=== PATIENT | male | born 1995 | race Caucasian/White ===

== ENCOUNTER 2018-08-06 08:22 | Emergency (ER) | payer BC, OTHER ==
[2018-08-06 08:28] VITALS: BP 137/86; PULSE 79; TEMP 98.1; BMI 27.8
[2018-08-06] MEDS ORDERED: KETOROLAC TROMETHAMINE 60 MG/2 ML VIAL IM ONE (09:17)
[2018-08-06] MEDS ORDERED: hydrOXYzine PAMOATE 50 MG CAPSULE (FP) PO ONE (09:17)
--- NOTE | 2018-08-06 09:17 | PDOC ---
History of Present Illness - General Chief Complaint: Back Pain Stated Complaint: LOWER BACK PAIN Time Seen by Provider: 08/06/18 08:55 - History of Present Illness Initial Comments: 08/06/18 10:11 Chief complaint: Low back pain History of present illness: Patient doing squats with heavy weights yesterday in the gym, noted sudden low back pain, which worsened this morning. Having difficulty moving. Pain and stiffness low back without radiation to the legs. Periodic low back pain and stiffness in the past, usually the result of weight lifting, resolving spontaneously. No history of disc disease or radiculopathy. Review of systems: No fever/chills, no radiation of the pain to the legs, no numbness or tingling in the lower extremities. No saddle anesthesia, bowel or bladder incontinence or retention. Remainder systems reviewed and negative Past medical history: Healthy male, no history of significant medical or surgical problems past or present. No medications. Social history: Denies tobacco, drugs. Occasional social alcohol, none recently. Fully ambulatory without disability Family history: Negative for early coronary artery disease, bone or joint disease, metabolic diseases including diabetes, cancer Physical exam: Alert and oriented, well-developed well-nourished, mild to moderate distress due to back pain and stiffness. However, cooperative Afebrile, vital signs normal LS spine: There is loss of the normal lumbar lordosis with paravertebral spasm bilaterally. There is no point tenderness or inflammation over the vertebral bodies. Straight leg raising is negative. No distal sensory or motor deficits in the lower extremities. No saddle anesthesia and good sphincter tone. Abdomen soft nontender without mass or organomegaly. No CVAT. Bowel sounds normal. Nondistended. Neurological C2 to 12 intact. Strength full and symmetric. No focal sensory or motor deficits. Gait is stable, there is no limb, but there is pain with weightbearing and walking localized to the low back. Impression: Low back strain. No evidence of radiculopathy or disc herniation Plan: Symptomatic treatment, rest and medication, referral to orthopedist. Past History - Past Medical History Allergies/Adverse Reactions: Allergies Allergy/AdvReac Type Severity Reaction Status Date / Time No Known Allergies Allergy Verified 08/06/18 08:22 Home Medications: Ambulatory Orders Cyclobenzaprine HCl [Flexeril -] 10 mg PO TID #15 tablet 08/06/18 Diclofenac Sodium 75 mg PO BID #20 tablet.dr 08/06/18 COPD: No - Suicide/Smoking/Psychosocial Hx Smoking History: Never smoked Have you smoked in the past 12 months: No Information on smoking cessation initiated: No Hx Alcohol Use: No Drug/Substance Use Hx: No Substance Use Type: None *Physical Exam - Vital Signs Last Vital Signs Temp Pulse Resp BP Pulse Ox 98.1 F 79 20 137/86 100 08/06/18 08:22 08/06/18 08:22 08/06/18 08:22 08/06/18 08:22 08/06/18 08:22 Moderate Sedation - Procedure Monitoring Vital Signs: Procedure Monitoring Vital Signs Temperature 98.1 F 08/06/18 08:22 Pulse Rate 79 08/06/18 08:22 Respiratory Rate 20 08/06/18 08:22 Blood Pressure 137/86 08/06/18 08:22 O2 Sat by Pulse Oximetry (%) 100 08/06/18 08:22 Medical Decision Making - Medical Decision Making 08/06/18 10:18 Much improved with treatment. More mobile, pain significantly improved, ambulatory without difficulty, and more comfortable at rest. Symptomatic treatment and medication until resolution, otherwise follow-up with specialist managers 1 week. Fully ambulatory and in no significant pain or other distress upon discharge with mother to follow-up as directed *DC/Admit/Observation/Transfer Diagnosis at time of Disposition: Low back strain Qualifiers: Encounter type: initial encounter Qualified Code(s): S39.012A - Strain of muscle, fascia and tendon of lower back, initial encounter - Discharge Dispostion Disposition: HOME Condition at time of disposition: Improved Decision to Admit order: No - Prescriptions Prescriptions: Cyclobenzaprine HCl [Flexeril -] 10 mg PO TID #15 tablet Diclofenac Sodium 75 mg PO BID #20 tablet. - Referrals Referrals: Glen Barnett MD [Staff Physician] - - Patient Instructions Printed Discharge Instructions: DI for Low Back Pain Additional Instructions: Rest, heat, gentle stretching, medication as directed. Absolutely avoid sitting in a chair or a car, because this will severely aggravate your back spasm. See specialist if pain or stiffness continues as directed. - Post Discharge Activity Forms/Work/School Notes: Back to Work
[2018-08-06] MEDS ORDERED: KETOROLAC TROMETHAMINE 60 MG/2 ML VIAL ONE (09:23)
[2018-08-06] MEDS ORDERED: hydrOXYzine PAMOATE 25 MG CAPSULE (FP) PO ONE (09:23)
== END 2018-08-06 10:01 | disposition home or self-care (01) ==
LOC: FER 08:22
PROC: 3E0233Z Introduction of Anti-inflammatory into Muscle, Percutaneous Approach (ICD-10-PCS; principal; 2018-08-06)
DX: S39.012A Strain of muscle, fascia and tendon of lower back, initial encounter (principal); X58.XXXA Exposure to other specified factors, initial encounter; Y93.89 Activity, other specified; Y92.89 Other specified places as the place of occurrence of the external cause
CPT/HCPCS: 99282-25